=== PATIENT | female | born 1985 | race African-American/Black ===

== ENCOUNTER 2017-10-20 04:32 | Observation (INO) ==
[2017-10-20] MEDS ORDERED: ACETAMINOPHEN 325 MG TABLET PO PRN (06:04)
[2017-10-20] MEDS ORDERED: ONDANSETRON 4 MG/2 ML VIAL IV PRN (06:04)
[2017-10-20] MEDS ORDERED: ALPRAZolam 0.5 MG TABLET PO ONE (06:30)
[2017-10-20 08:42] LABS: Risk Ratio 3.12
[2017-10-20 09:14] LABS: Thyroid Stimulating Hormone 1.79 uIU/ml (0.358-3.74)
[2017-10-20] MEDS: SODIUM CHLORIDE 0.9% 1,000 ML IV SCH ×2 (11:09→19:02)
[2017-10-20 17:52] LABS: Folate 11.9 NG/ML (5.4-24.0)
[2017-10-21] MEDS: SODIUM CHLORIDE 0.9% 1,000 ML IV SCH (03:02)
[2017-10-21] MEDS ORDERED: metroNIDAZOLE 500 MG TABLET PO SCH (09:00)
[2017-10-21 14:47] VITALS: BP 111/59
== END 2017-10-21 14:54 | disposition home or self-care (01) ==
LOC: N.ED 04:32 → N.EDINP 04:32 → N.5E 06:21 → N.2E 06:26
PROVIDERS: ADMIT Internal Medicine; ATTEND Internal Medicine